=== PATIENT | male | born 1965 ===

== ENCOUNTER 2019-07-07 10:05 | Emergency (ER) | payer OTHER ==
[~2019-07-07] VITALS: Ht 167.6 cm; Wt 135.2 kg
[2019-07-07] MEDS ORDERED: DIOVAN160 M1 PO (11:01)
== END 2019-07-07 14:26 | disposition home or self-care (01) ==
LOC: ER 10:05 → EDBD 10:32 → ER 10:32
DX: R07.89 Other chest pain (principal); G89.11 Acute pain due to trauma

== ENCOUNTER 2019-07-11 10:38 | Emergency (ER) | payer OTHER ==
[~2019-07-11] VITALS: Ht 167.6 cm; Wt 135.2 kg
[~2019-07-11 10:38] MED LIST: DIOVAN160 M1 PO
[2019-07-11] MEDS ORDERED: MEDROLPACK PO (15:45)
== END 2019-07-11 15:54 | disposition home or self-care (01) ==
LOC: ER 10:38
DX: M54.6 Pain in thoracic spine (principal)

== ENCOUNTER 2022-03-08 07:52 | Outpatient (CLI) | payer OTHER ==
[~2022-03-08 07:52] MED LIST changes: +MEDROLPACK PO
== END 2022-03-08 07:53 | disposition home or self-care (01) ==
LOC: RAD 07:52
DX: R07.9 Chest pain, unspecified (principal)

== ENCOUNTER 2022-05-04 07:58 | Outpatient (CLI) | payer OTHER | END 2022-05-04 08:00 | disposition home or self-care (01) | LOC: RAD 07:58 | DX: M54.50 Low back pain, unspecified (principal) ==